=== PATIENT | female | born 1935 | race Caucasian/White ===

== ENCOUNTER → 2018-11-21 | Outpatient (CLI) | payer MEDICARE ==
--- NOTE | 2018-11-22 13:01 | KCIC ---
Chest PA and lateral: Reason for examination: Short of breath The heart size is mildly enlarged. Mediastinum is unremarkable. Lung strong are clear. No acute bony abnormalities are seen. Impression: Mild cardiomegaly. No acute cardiopulmonary disease. Electronically signed by: Helene Mendez MD (11/22/2018 12:58 PM) [id number]
== END | disposition home or self-care (01) ==
LOC: KCIC 15:48
PROVIDERS: ATTEND Internal Medicine Cardiovascular Disease
DX: I48.0 Paroxysmal atrial fibrillation (principal); I51.7 Cardiomegaly; Z51.81 Encounter for therapeutic drug level monitoring; Z79.899 Other long term (current) drug therapy; Z88.0 Allergy status to penicillin; Z88.8 Allergy status to other drugs, medicaments and biological substances
CPT/HCPCS: 71046